=== PATIENT | female | born 1980 | race Caucasian/White ===

== ENCOUNTER 2017-06-16 22:13 | Emergency (ER) ==
--- NOTE | 2017-06-16 22:19 | ED.PDOC ---
General ED Provider: Dr. FILIPE LEE-ER Chief Complaint: Rash Stated Complaint: i have an itchy rash on my leg and my left arm for 2mos Time Seen by Physician: 22:17 Mode of Arrival: Walk-In Information Source: Patient Exam Limitations: No limitations Nursing and Triage Documentation Reviewed and Agree: Yes Skin Complaint Exam - Skin Rash/Itching Complaint/Exam Onset/Duration: 2mos Symptoms Are: Still present Initial Severity: Mild Current Severity: Mild Location: left leg and left arm Potential Exposures: Reports: Other Aggravating: Reports: None Alleviating: Reports: None Associated Signs and Symptoms: Denies: Difficulty breathing, Fever, Chills Skin Findings: Present: Dry scaly skin Differential Diagnoses: Contact Dermatitis, Tinea Review of Systems - Review Of Systems Constitutional: Reports: No symptoms Eyes: Reports: No symptoms Ears, Nose, Mouth, Throat: Reports: No symptoms Respiratory: Reports: No symptoms Cardiac: Reports: No symptoms GI: Reports: No symptoms : Reports: No symptoms Musculoskeletal: Reports: No symptoms Skin: Reports: Rash Neurological: Reports: No symptoms Endocrine: Reports: No symptoms Hematologic/Lymphatic: Reports: No symptoms All Other Systems: Reviewed and Negative Past Medical History - Past Medical History Previously Healthy: Yes Endocrine: Reports: Unknown Cardiovascular: Reports: Unknown Respiratory: Reports: Unknown Hematological: Reports: Unknown Gastrointestinal: Reports: Unknown Genitourinary: Reports: Unknown Neuro/Psych: Reports: Unknown Musculoskeletal: Reports: Unknown Cancer: Reports: Unknown - Surgical History General Surgical History: Reports: Unknown - Family History Family History: Reports: Unknown Physical Exam - Physical Exam Appearance: Well-appearing Eyes: TERI, EOMI, Conjunctiva clear ENT: Ears normal, Nose normal, Oropharynx normal Neck: Supple Respiratory: Airway patent Cardiovascular: RRR, Pulses normal, No rub, No murmur GI/: Soft, Nontender, No masses, Bowel sounds normal, No Organomegaly Musculoskeletal: Normal strength, ROM intact, No edema, No calf tenderness Skin: Warm (noted macular erythematous rash over lower extremity and left arm) Neurological: Sensation intact, Motor intact, Reflexes intact, Cranial nerves intact, Alert, Oriented Psychiatric: Affect appropriate Critical Care Note - Critical Care Note Total Time (mins): 0 Departure - Departure Time of Disposition: 22:19 Disposition: HOME SELF-CARE Discharge Problem: Contact dermatitis Qualifiers: Contact dermatitis type: irritant Contact dermatitis trigger: unspecified trigger Qualified Code(s): L24.9 - Irritant contact dermatitis, unspecified cause Instructions: Contact Dermatitis (ED) Condition: Good Pt referred to PMD for follow-up: Yes Additional Instructions: lotrisone cream apply to the rash bid x 7-10 days--f/u with pcp if not better by next week Disposition Discussed With: Patient
[2017-06-16 22:23] VITALS: BP 114/70; TEMP 98.5; BMI 23.8
== END 2017-06-16 22:35 | disposition home or self-care (01) ==
LOC: ED 22:13
DX: L24.9 Irritant contact dermatitis, unspecified cause (principal)
CPT/HCPCS: 99282